=== PATIENT | male | born 1985 | race Two or more races ===

== ENCOUNTER 2021-11-24 17:50 | Emergency (ER) | payer MEDICAID, OTHER ==
[~2021-11-24] VITALS: Ht 193 cm; Wt 95.0 kg
[2021-11-24 18:03] VITALS: BP 138/83
[2021-11-24 19:59] LABS: Hepatitis B Surface Antibody Positive (Negative)
[2021-11-25] MEDS ORDERED: EMTRTAB7 PO (00:29)
[2021-11-25] MEDS ORDERED: RALT400T PO (00:29)
[2021-11-25] MEDS ORDERED: TETANUS-DIPTH-ACEL PERTUSSIS 0.5ML SYR Tdap IM ONE (00:30)
== END 2021-11-25 01:00 | disposition home or self-care (01) ==
LOC: ER 17:50
DX: S61.234A Puncture wound without foreign body of right ring finger without damage to nail, initial encounter (principal); Z79.899 Other long term (current) drug therapy; W46.1XXA Contact with contaminated hypodermic needle, initial encounter; Y93.89 Activity, other specified; Y92.89 Other specified places as the place of occurrence of the external cause; Y99.0 Civilian activity done for income or pay
CPT/HCPCS: 36415; 86703; 86706; 86803; 87340; 90471; 90715